=== PATIENT | male | born 1960 | race Caucasian/White ===

== ENCOUNTER 2024-02-22 13:28 | Inpatient (IN) | payer OTHER ==
--- OUTSIDE RECORDS SUMMARY | 2024-02-22 13:31 | XMS REPORT | Clinical Summary ---
Author Name Unknown Organization [facility] Address [address] [place] [address] Care Team Providers [employer] Name Role Phone Niya Mccarthy MD Unavailable [phone] Christiano Wilder MD Primary Care Provider [phone] Niya Mccarthy MD Unavailable [phone] Suni Kurtz MD Unavailable Finn Hawk MD Unavailable Renata Warren PA-C Unavailable [phone] Allergies Active Allergy Reactions Criticality Noted Date Comments Codeine Itching High 06/01/2015 Cefadroxil Itching High 06/01/2015 Cefdinir Itching High 06/01/2015 Medications * This document contains information received from the source organization and may not represent a complete record from that organization. BENICAR HCT 40-12.5 mg per tablet Take 1 tablet by mouth daily. 0 6 Active multivitamin (THERAGRAN) tab tablet Take 1 tablet by mouth daily. Active glucosamine-chondr oitin 500-400 mg tablet Take 2 tablets by mouth daily. Reported on 04/06/2016 Active vitamin E 600 units capsule Take 1 capsule (600 Units) by mouth daily. Active magnesium oxide 250 mg magnesium tablet Take 250 mg by mouth twice daily. Active cholecalciferol, vitamin D3, (VITAMIN D3 ORAL) Take 5,000 Units by mouth daily. Active VITAMIN K2 ORAL Take 1 tablet by mouth daily. Active ascorbic acid (VITAMIN C ORAL) Take 1 tablet by mouth daily. Active tadalafil (CIALIS) 20 mg tablet Take 1 tablet (20 mg) by mouth as needed. PRN 30 minutes prior to sexual activity. Max of one tablet in 36 hrs 2 Active ondansetron (ZOFRAN-ODT) 4 mg disintegrating tablet Dissolve 1 tablet (4 mg) on the tongue as needed. 2 Active sildenafil (VIAGRA) 100 MG tablet Take 1 tablet (100 mg) by mouth daily. 2 Active triamcinolone (KENALOG) ointment 0.1%Indications:Ec zema Apply topically to affected area(s) 2 (two) times a day as needed for rash (rash on body). 30 g 1 3 Active terbinafine HCl (LamISIL) 250 mg tabletIndications: Majocchi granuloma Take 1 tablet (250 mg) by mouth daily. 30 tablet 3 Active glimepiride (AMARYL) 2 mg tablet TAKE ONE (1) TABLET(S) BY MOUTH TWICE A DAY. 3 Active metFORMIN (GLUCOPHAGE) 500 mg tablet TAKE ONE (1) TABLET(S) BY MOUTH TWICE A DAY. 3 Active doxycycline (VIBRAMYCIN) 100 mg tabletIndications: Basal cell carcinoma of cheek Take 1 tablet (100 mg) by mouth twice daily. 20 tablet 3 Active Active Problems Problem Noted Date Diagnosed Date Pulmonary embolism 06/05/2021 Assessment & Plan (10/06/2021 8:43 AM CDT): Pulmonary embolism diagnosed 04/21/[address] scan for history of CHL intervention. Appears to have been provoked by Covid infection. Patient does also have a port in place, but the distribution of the blood clot on CT scan is not typical for a small port associated thrombus. Presence of GGO on CT scan suggest this was infection associated. He will complete 6 months of anticoagulation in early October. I have counseled him to continue his anticoagulation until this last refill is finished and then he can stop. Further follow-up in hematology clinic is not currently indicated though I remain available should any new issues arise. Assessment & Plan (06/07/2021 1:51 PM CDT): Pulmonary embolism diagnosed 04/21/[address] scan for history of CHL intervention. Appears to have been provoked by Covid infection. Patient does also have a port in place, but the distribution of the blood clot on CT scan is not typical for a small port associated thrombus. Presence of GGO on CT scan suggest this was infection associated. We will plan for 6 months of anticoagulation with plan to likely stop at that point. He knows to call or return for follow-up sooner if he develops bleeding problems in the interim. Return to clinic 4 months for consideration of discontinuation of anticoagulation. Pain in left shoulder 02/15/2017 Chronic back pain 04/06/2016 Neoplasm related pain (acute) (chronic) 08/26/19 16 Febrile neutropenia 08/24/2015 Rash 08/24/2015 Anemia in neoplastic disease 08/24/2015 Other Hodgkin lymphoma, lymph nodes of head, fac e, and neck 06/01/2015 Overview (12/17/2015): inactive Surgical History Surgery Date Site/Laterality Comments LYMPH NODE BIOPSY 05/06/2015 Left cervical lymph node SKIN BIOPSY N/A MOHS PROCEDURE left side of face and upper back WISDOM TOOTH EXTRACTION FL INSJ TUNNELED CTR VAD W/SUBQ PORT AGE 5 YR/> 09/15/2015 Chest/Right Procedure: INSERTION OF TUNNELED CENTRALLY INSERTED CENTRAL VENOUS CATHETER WITH SUBCUTANEOUS PORT; Surgeon: Santiago Miranda MD; Location: [facility]; Service: THRCV - VASCULAR SURGERY Medical devices from this surgery are in the Medical Devices section. FL US VASC ACCESS SITS VSL PATENCY NDL ENTRY 09/15/2015 Chest/Right Procedure: US GUIDANCE WITH EVAL OF POTENTIAL ACCESS SITES, REALTIME US VISUALIZATION OF VASC NEEDLE ENTRY; Surgeon: Santiago Miranda MD; Location: [facility]; Service: THRCV - VASCULAR SURGERY Medical devices from this surgery are in the Medical Devices section. FL FLUORO CENTRAL VENOUS ACCESS DEV PLACEMENT 09/15/2015 Chest/Right Procedure: FLUORO GUIDANCE FOR CENTRAL VENOUS ACCESS DEVICE PLACEMENT; Surgeon: Santiago Miranda MD; Location: [facility]; Service: THRCV - VASCULAR SURGERY Medical devices from this surgery are in the Medical Devices section. Medical History Medical History Date Comments Malignant lymphoma Hypertension Anemia in neoplastic disease 08/24/2015 Cancer of skin non-melanoma, le ft side of face and on upper back Family History Medical History Relation Name Comments Other Maternal Aunt accident Stroke Paternal Grandfather Asthma Sister 1 Relation Name Status Comments Father Alive Maternal Aunt (Age 18) Maternal Grandfather Maternal Grandmother (Age 95) Mother (Age 60s) Paternal Grandfather Paternal Grandmother Paternal Uncle 1 Alive Paternal Uncle 2 Alive Sister 1 Sister 2 Alive Social History Tobacco Use Types Packs/Day Years Used Date Smoking Tobacco: Never Smokeless Tobacco: Never Alcohol Use Standard Drinks/Week Comments No 0 (1 standard drink = 0.6 oz pur e alcohol) Sex and Gender Information Value Date Recorded Sex Assigned at Not on file Legal 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, 7th [place] [address] Heidi Atkinson, H[employer]ILL [employer]ER [address] [place] [phone] [email or web address] 03/24/2024 8:45 AM CROWNING INSPECTOR [facility] [address] [place] [phone] Heidi Atkinson, HOT MILL RO[employer]ER [address] [place] [phone] [email or web address] 03/24/2024 11:00 AM CROWNING INSPECTOR Follow-Up [facility] [address] [place] [address], 6th [place] [address] Christiano Wilder MD [address] [place] [phone] [email or web address] Health Maintenance Due Date Last Done Comments Pneumococcal Vaccine: Pediat rics (0 to 5 Years) and At-Risk Patients (6 to 64 Years) (1 of 2 - PCV) 08/10/1966 COVID-19 Vaccine (2 - Shruthi risk series) 06/23/2020 05/26/2020 Influenza Vaccine (#1) 2023 Medical Devices Implanted Type Area Product Lead Device Identifier Shelf Expiration Date Model / Serial / Lot Port Power Isp 6fr - [id number] Implanted:Qty : 1 on 09/15/2015 by Santiago Miranda MD at [facility] Implant Right: Chest Wall BARD [employer]ESS SYSTEM[employer] 05/15/2017 [id number] / / [id number] Insurance [facility] PPO [facility] PPO [facility] PPO Advance Directives * Full Code (Latest Code Status on File) Date Activated Date Inactivated Comments 08/24/2015 2:50 PM 08/26/2015 7:10 PM [employer] Executive Security Relationship Specialty Start Date End Date Niya Mccarthy MD [address] [place] [phone] [email or web address] PCP - External Referring 05/12/15 Christiano Wilder MD [address] [place] [phone] [email or web address] PCP - General Lymphoma and Myeloma 05/12/15 Niay Mccarthy MD [address] [place] [address] [email or web address] PCP - External Follow Up A 05/12/15 Suni Kurtz MD [address] [place] [phone] [email or web address] Physician Hematology 06/07/21 Finn Hawk MD [address] [place] [phone] [email or web address] Consulting Physician Dermatology 02/13/16 Renata Warren PA-C [address] [place] [phone] [email or web address] Physician Legal Executive Assistant Surgical Oncology 09/14/15
[2024-02-22] MEDS ORDERED: NITROGLYCERIN 0.4 MG/TAB SL ONE (13:48)
[2024-02-22] MEDS ORDERED: ASPIRIN 81 MG CHEWABLE TABLET ONE (13:48)
[2024-02-22] MEDS ORDERED: NA CHLORIDE 0.9% 500 ML ONE (13:48)
--- NOTE | 2024-02-22 14:25 | RAD REPORT ---
EXAM: Chest Single View HISTORY: CHEST PAIN COMPARISON: 08/24/2015 FINDINGS: LUNGS/PLEURA: Very mild nodular opacities present at the left lung base. No consolidation. No pulmona ry edema. MEDIASTINUM: The mediastinal silhouette is within normal limits. CARDIAC: The cardiac silhouette is within normal limits. UPPER ABDOMEN: No significant abnormality. BONES: No acute fracture. LINES/TUBES/OTHER: N/A IMPRESSION: Mild nodularity at the left lung base could reflect either acute or sequela of prior infection. The f indings are only mildly increased compared with 08/24/2015.
[2024-02-22 14:30] LABS: ALT/SGPT 24 U/L (16-61); AST/SGOT 15 U/L (15-37); Albumin 3.6 g/dL (3.4-5.0); Alkaline Phosphatase 60 U/L (45-117); Anion Gap 10.8 mEq/L (5.0-15.0); BUN Blood Urea Nitrogen 21 mg/dL (7-18); Bicarbonate 26 mEq/L (21-32); Bilirubin Total 0.6 mg/dL (0.2-1.0); Globulin 3.5 g/dL (2.3-3.5); Glomerular Filtration Rate 67 ml/min (=/>90); Glucose Level 128 mg/dL (74-106); Magnesium 2.2 mg/dL (1.6-2.4); NT PRO-BNP 377 pg/mL (<125); Potassium 3.8 mEq/L (3.5-5.1); Protein, Total 7.1 g/dL (6.4-8.2); Sodium Level 141 mEq/L (136-145); Troponin High Sensitivity 12.8 pg/mL (<58.9)
[2024-02-22 14:34] LABS: Bilirubin Direct < 0.2 mg/dL (0-0.2); Bilirubin Indirect, Calculated 0.4 mg/dL (0.2-0.8)
[2024-02-22 14:51] LABS: Absolute Basophils 0.1 K/uL (0-0.5); Absolute Eosinophils 0.1 K/uL (0-0.5); Absolute Lymphocytes (CBC) 3.5 K/uL (0.7-4.9); Absolute Monocytes 0.5 K/uL (0.1-1.3); Absolute Neutrophil 7.3 K/uL (1.8-8.0); Basophils % 0.9 % (0-1.3); Eosinophils % 0.7 % (0-4.4); Hematocrit 36.5 % (39.6-49.0); Hemoglobin 12.4 g/dL (13.6-17.9); Lymphocytes % 30.5 % (15.3-44.8); MCH 33.2 pg (27.0-35.0); MCHC 33.9 g/dL (32.0-36.0); MCV 97.9 fL (80-100); MPV 7.7 fL (7.6-11.3); Monocytes % 4.3 % (3.3-12.3); Neutrophils % 63.6 % (41.7-73.7); Platelets 229 thou/uL (152-406); RBC Red Blood Cell Count 3.73 M/uL (4.33-5.43); Red Cell Distribution Width 13.5 % (12.1-15.2)
[2024-02-22 15:01] LABS: PT Prothrombin Time 11.6 SECONDS (9.4-12.5); Protime INR 1.04
[2024-02-22 15:04] LABS: D-Dimer < 0.215 FEUug/mL (0-0.500)
--- NOTE | 2024-02-22 15:24 | ER ---
Nurse's Notes [facility] Name: Zach Mcfadden Age: 63 yrs Sex: Male : 1960 Arrival Date: 02/22/2024 Time: 13:28 Bed 6 Private MD: Diagnosis: Chest pain, unspecified Presentation: 02/21 13:37 Chief complaint: Patient states: left sided chest pain /10 with high blood pressure kc6 even after taking his meds this AM. pt reports SBP being in the 170's at home. pt states, "I'm just nervous. this is not normal for me.". Coronavirus screen: At this time, the client does not indicate any symptoms associated with coronavirus-19. Ebola Screen: No symptoms or risks identified at this time. Initial Sepsis Screen: Does the patient meet any 2 criteria? No. Patient's initial sepsis screen is negative. Does the patient have a suspected source of infection? No. Patient's initial sepsis screen is negative. Risk Assessment: Do you want to hurt yourself or someone else? Patient reports no desire to harm self or others. Onset of symptoms was February 22, 2024. 13:37 Method Of Arrival: Ambulatory kc6 13:37 Acuity: HUMBERTO 3 kc6 Historical: - Allergies: 13:39 Codeine; kc6 13:39 DURICEF; kc6 13:39 Omnicef; kc6 - PMHx: 13:39 Cancer; skin; Hodgkin's Lymphoma; Hypertension; Diabetes mellitus; kc6 - PSHx: 13:39 None; kc6 - Immunization history:: Adult Immunizations up to date. - Infectious Disease History:: Denies. - Social history:: Smoking status: Patient denies any tobacco usage or history of. Screenin:35 [facility] ED Fall Risk Assessment (Adult) History of falling in the last 3 months, rs5 including since admission No falls in past 3 months (0 pts) Confusion or Disorientation No (0 pts) Intoxicated or Sedated No (0 pts) Impaired Gait No (0 pts) Mobility Assist Device Used No (0 pt) Altered Elimination No (0 pt) Score/Fall Risk Level 0 - 2 = Low Risk Oriented to surroundings, Maintained a safe environment. Abuse screen: Denies threats or abuse. Nutritional screening: No deficits noted. Tuberculosis screening: No symptoms or risk factors identified. Assessment: 13:35 General: Appears in no apparent distress. uncomfortable, Behavior is calm, cooperative. rs5 Pain: Complains of pain in chest Pain does not radiate. Pain currently is 5 out of 10 on a pain scale. Quality of pain is described as aching, Pain began Is continuous. Neuro: Level of Consciousness is awake, alert, obeys commands, Oriented to person, place, time, situation. Cardiovascular: Patient's skin is warm and dry. 13:35 Respiratory: Airway is patent Respiratory effort is even, unlabored, Respiratory rs5 pattern is regular, symmetrical. GI: Abdomen is round non-distended, Abd is soft and non tender X 4 quads. : No signs and/or symptoms were reported regarding the genitourinary system. EENT: No signs and/or symptoms were reported regarding the EENT system. Derm: Skin is intact, Skin is pink, warm \\T\\ dry. 14:46 Reassessment: Patient and/or family updated on plan of care and expected duration. Pain rs5 level reassessed. Patient is alert, oriented x 3, equal unlabored respirations, skin warm/dry/pink. Patient denies pain at this time. Patient states feeling better. Patient states symptoms have improved. 15:43 Reassessment: Patient and/or family updated on plan of care and expected duration. Pain rs5 level reassessed. Patient is alert, oriented x 3, equal unlabored respirations, skin warm/dry/pink. 16:25 Reassessment: Patient and/or family updated on plan of care and expected duration. Pain rs5 level reassessed. Patient is alert, oriented x 3, equal unlabored respirations, skin warm/dry/pink. Vital Signs: 13:37 BP 216 / 101; Pulse 66; Resp 16 S; Pulse Ox 100% on R/A; Weight 79.38 kg (R); Height 5 kc6 ft. 6 in. (R); Pain 03/27; 13:40 BP 207 / 82; kc6 14:07 BP 183 / 84; Pulse 74; Resp 17; Pulse Ox 98% on R/A; rs5 14:34 BP 163 / 77; Pulse 56; aa5 15:44 BP 168 / 77; Pulse 61; Resp 17; Pulse Ox 99% on R/A; rs5 16:25 BP 158 / 74; Pulse 70; Resp 17; Pulse Ox 98% on R/A; rs5 13:37 Body Mass Index 28.25 (79.38 kg, 167.64 cm) kc6 13:37 Pain Scale: Adult kc6 ED Course: 13:32 Patient arrived in ED. mg5 13:32 Mariano Blue PA is PHCP. cp 13:32 Glenn Agrawal MD is Attending Physician. cp 13:35 No provider procedures requiring assistance completed. Inserted saline lock: 20 gauge rs5 in left antecubital area, using aseptic technique. Blood collected. Flushed with 10 mL NS. Patient maintains SpO2 saturation greater than 95% on room air. 13:39 Triage completed. kc6 13:39 Arm band placed on. kc6 13:39 Patient has correct armband on for positive identification. Bed in low position. Call kc6 light in reach. Side rails up X 1. monitoring specialist on. Pulse ox on. NIBP on. 13:44 Leoncio Bhatt, RN is Primary Nurse. rs5 14:18 XRAY Chest (1 view) In Process Unspecified. EDMS 15:23 Anup Agrawal MD is Hospitalizing Provider. cp 16:33 Patient admitted, IV remains in place. rs5 16:34 Provided Education on: discharge instructions . rs5 Administered Medications: 14:07 Drug: Aspirin PO Chewable Tablet 324 mg PO once; 81 mg tablets x 4 Route: PO; rs5 15:00 Follow up: Response: No adverse reaction rs5 14:07 Drug: Nitroglycerin Sublingual 0.4 mg Sublingual once Route: Sublingual; rs5 14:30 Follow up: Response: No adverse reaction; Pain is decreased rs5 14:07 Drug: NS 0.9% IV 500 ml IV at calculated rate once; to be given as a bolus over 30 rs5 minutes Route: IV; Rate: calculated rate; Site: left hand; 14:33 Follow up: Response: No adverse reaction; IV Status: Completed infusion; IV Intake: rs5 500ml 14:35 CANCELLED (Physician Discretion): [id number] mg IV at calculated rate once over 2 cp mins; For SBP greater than 140. Hold for HR less than 60, notify provider. Medication: 15:44 VIS not applicable for this client. rs5 Intake: 14:33 IV: 500ml; Total: 500ml. rs5 Outcome: 15:24 Decision to Hospitalize by Provider. cp 16:33 Admitted to Med/surg accompanied by tech, with chart, rs5 16:33 Condition: stable rs5 16:33 Instructed on the need for admit, Demonstrated understanding of instructions, 16:35 Patient left the ED. hb Signatures: Dispatcher [employer] EDMS Kavita Cortez RN RN aa5 Mariano Blue PA PA cp Becky Cespedes RN RN Nohemi Gurrola RN RN kc6 Leoncio Bhatt RN RN rs5 Angie Barnett mg5 Corrections: (The following items were deleted from the chart) 13:45 13:37 Chief complaint: Patient states: left sided chest pain 03/27 with high blood kc6 pressure even after taking his meds this AM. pt reports SBP being in the 170's at home. kc6
--- NOTE | 2024-02-22 15:24 | EDPHYS ---
Physician Documentation [facility] Name: Zach Mcfadden Age: 63 yrs Sex: Male : 1960 Arrival Date: 02/22/2024 Time: 13:28 Bed 6 Private MD: ED Physician Glenn Agrawal HPI: 02/21 13:45 This 63 yrs old Male presents to ER via Ambulatory with complaints of Chest Pain, High cp Blood Pressure. 13:45 The patient or guardian reports chest pain that is located primarily in the anterior cp chest wall, left. Onset: this morning. The pain does not radiate. 13:45 Associated signs and symptoms: Pertinent positives: elevated blood pressure, Pertinent cp negatives: abdominal pain, cough, diaphoresis, dizziness, near syncope, shortness of breath, syncope, vomiting. The chest pain is described as a pressure. Duration: The patient or guardian reports a single episode, that is still ongoing, but improving. Historical: - Allergies: 13:39 Codeine; kc6 13:39 DURICEF; kc6 13:39 Omnicef; kc6 - PMHx: 13:39 Cancer; skin; Hodgkin's Lymphoma; Hypertension; Diabetes mellitus; kc6 - PSHx: 13:39 None; kc6 - Immunization history:: Adult Immunizations up to date. - Infectious Disease History:: Denies. - Social history:: Smoking status: Patient denies any tobacco usage or history of. ROS: 13:50 Cardiovascular: Positive for chest pain, cp 13:50 Constitutional: Negative for body aches, chills, fever, poor PO intake, cp 13:50 Eyes: Negative for injury, pain, redness, and discharge, cp 13:50 ENT: Negative for drainage from ear(s), ear pain, sore throat, difficulty swallowing, difficulty handling secretions, 13:50 Respiratory: Negative for cough, shortness of breath, wheezing, 13:50 Abdomen/GI: Negative for abdominal pain, vomiting, diarrhea, constipation, 13:50 Back: Negative for pain at rest, pain with movement, 13:50 Neuro: Negative for altered mental status, dizziness, headache, numbness, syncope, near syncope, weakness, 13:50 All other systems are negative, Exam: 13:53 ECG was reviewed by the Attending Physician. cp 13:55 Constitutional: The patient appears in no acute distress, alert, awake, cp non-diaphoretic, non-toxic, well developed, well nourished, uncomfortable, 13:55 Head/Face: Normocephalic, atraumatic. cp 13:55 Eyes: Periorbital structures: appear normal, Conjunctiva: normal, no exudate, no injection, Sclera: no appreciated abnormality, Lids and lashes: appear normal, bilaterally, 13:55 ENT: External ear(s): are unremarkable, Nose: is normal, Mouth: Lips: moist, Oral mucosa: moist, Posterior pharynx: Airway: no evidence of obstruction, patent, 13:55 Chest/axilla: Inspection: normal, 13:55 Cardiovascular: Rate: normal, Rhythm: regular, Edema: is not appreciated, JVD: is not appreciated, 13:55 Respiratory: the patient does not display signs of respiratory distress, Respirations: normal, no use of accessory muscles, no retractions, labored breathing, is not present, Breath sounds: are clear throughout, no decreased breath sounds, no stridor, no wheezing, 13:55 Abdomen/GI: Inspection: abdomen appears normal, Palpation: abdomen is soft and non-tender, in all quadrants, 13:55 Back: pain, is absent, ROM is normal, 13:55 Neuro: Orientation: to person, place \T\ time. Mentation: is normal, Motor: moves all fours, strength is normal, Sensation: is normal, Vital Signs: 13:37 BP 216 / 101; Pulse 66; Resp 16 S; Pulse Ox 100% on R/A; Weight 79.38 kg (R); Height 5 kc6 ft. 6 in. (R); Pain 1/10; 13:40 BP 207 / 82; kc6 14:07 BP 183 / 84; Pulse 74; Resp 17; Pulse Ox 98% on R/A; rs5 14:34 BP 163 / 77; Pulse 56; aa5 15:44 BP 168 / 77; Pulse 61; Resp 17; Pulse Ox 99% on R/A; rs5 16:25 BP 158 / 74; Pulse 70; Resp 17; Pulse Ox 98% on R/A; rs5 13:37 Body Mass Index 28.25 (79.38 kg, 167.64 cm) [facility] 13:37 Pain Scale: Adult kc MDM: 15:24 Medical Screening Exam initiated 15:25 Data reviewed: vital signs, nurses notes, lab test result(s), EKG, radiologic studies, cp plain films, and as a result, I will admit patient. 15:25 Differential diagnosis: abnormal EKG, acute myocardial infarction, pleurisy, pneumonia, cp pneumothorax, pulmonary embolus, stable angina, unstable angina. The patient was given aspirin in the Emergency Department. I considered the following discharge prescriptions or medication management in the emergency department Medications were administered in the Emergency Department. See MAR. Independent interpretation of the following test(s) in the Emergency Department EKG: See my EKG interpretation above. Care significantly affected by the following chronic conditions: Diabetes, Hypertension. Counseling: I had a detailed discussion with the patient and/or guardian regarding the historical points, exam findings, and any diagnostic results supporting the discharge/admit diagnosis, lab results, radiology results. Response to treatment: the patient's symptoms have markedly improved after treatment, and as a result, I will admit patient. 15:30 ED course: consult with hospitalist Silvia Penaloza NP who will admit to services of DR Agrawal. 02/21 13:43 Order name: Basic Metabolic Panel; Complete Time: 14:35 02/21 14:35 Interpretation: Normal except: CL 108; GLUC 128; BUN 21; GFR 67. 02/21 13:43 Order name: CBC with Diff; Complete Time: 15:14 02/21 15:15 Interpretation: Normal except: WBC 11.50; RBC 3.73; HGB 12.4; HCT 36.5. 02/21 13:43 Order name: LFT's; Complete Time: 14:35 02/21 13:43 Order name: Magnesium; Complete Time: 14:35 02/21 13:43 Order name: NT PRO-BNP; Complete Time: 14:35 02/21 14:35 Interpretation: Reviewed. 02/21 13:43 Order name: Troponin HS; Complete Time: 14:35 02/21 14:36 Interpretation: Reviewed. 02/21 14:36 Order name: D-Dimer; Complete Time: 15:14 02/21 14:52 Order name: Protime (+INR); Complete Time: 15:14 EDME 02/21 13:43 Order name: XRAY Chest (1 view); Complete Time: 14:28 02/21 14:29 Interpretation: No acute disease except: Report review. 02/21 13:43 Order name: Cardiac monitoring; Complete Time: 13:45 02/21 13:43 Order name: EKG - Nurse/Tech; Complete Time: 13:45 02/21 13:43 Order name: IV Saline Lock; Complete Time: 14:07 02/21 13:43 Order name: Labs collected and sent; Complete Time: 14:07 02/21 13:43 Order name: O2 Per Protocol; Complete Time: 13:45 02/21 13:43 Order name: O2 Sat Monitoring; Complete Time: 13:45 02/21 14:18 Order name: Misc. Order: lab redraw; Complete Time: 15:43 sp EC:53 Rate is 63 beats/min. Rhythm is regular. FL interval is normal. QRS interval is normal. cp QT interval is normal. T waves are Inverted in leads III, aVR. Interpreted by me. Reviewed by me. Administered Medications: 14:07 Drug: Aspirin PO Chewable Tablet 324 mg PO once; 81 mg tablets x 4 Route: PO; rs5 15:00 Follow up: Response: No adverse reaction rs5 14:07 Drug: Nitroglycerin Sublingual 0.4 mg Sublingual once Route: Sublingual; rs5 14:30 Follow up: Response: No adverse reaction; Pain is decreased rs5 14:07 Drug: NS 0.9% IV 500 ml IV at calculated rate once; to be given as a bolus over 30 rs5 minutes Route: IV; Rate: calculated rate; Site: left hand; 14:33 Follow up: Response: No adverse reaction; IV Status: Completed infusion; IV Intake: rs5 500ml 14:35 CANCELLED (Physician Discretion): [id number] mg IV at calculated rate once over 2 cp mins; For SBP greater than 140. Hold for HR less than 60, notify provider. Disposition: 19:38 Co-signature as Attending Physician, Glenn Agrawal MD I reviewed the patient's care rn provided by the Advanced Practice Provider and agree with the diagnosis and treatment plan. Disposition Summary: 02/22/24 15:24 Hospitalization Ordered Notes: Hospitalization Status: Observation cp Provider: Anup Agrawal cp Location: Telemetry/MedSurg (observation) cp Condition: Stable cp Problem: new cp Symptoms: have improved cp Bed/Room Type: Standard cp Room Assignment: 230(02/22/24 15:56) aa5 Diagnosis - Chest pain, unspecified cp Forms: - Medication Reconciliation Form cp - SBAR form cp - Leadership Thank You Letter cp Signatures: Dispatcher [employer] EDMS Ariela Martinez Irene, RN RN iw Glenn Agrawal MD MD rn Calderon, Audri RN RN aa5 Mariano Blue PA PA cp Campbell, Kaitlyn, RN RN kc6 Leoncio Bhatt, VIKI RN rs5 Corrections: (The following items were deleted from the chart) 13:44 13:44 BASIC METABOLIC PANEL+C.LAB.BRZ ordered. EDMS EDMS 13:44 13:44 CBC+H.LAB.BRZ ordered. EDMS EDMS 13:44 13:44 HEPATIC FUNCTION+C.LAB.BRZ ordered. EDMS EDMS 13:44 13:44 MAGNESIUM+C.LAB.BRZ ordered. EDMS EDMS 13:44 13:44 PROBNP+C.LAB.BRZ ordered. EDMS EDMS 13:44 13:44 Troponin High Sensitivity+C.LAB.BRZ ordered. EDMS EDMS 13:44 13:44 Chest Single View+RAD.RAD.BRZ ordered. EDMS EDMS 14:35 14:30 Labetalol IV 10 mg IV at calculated rate once over 2 mins; For SBP greater than cp 140. Hold for HR less than 60, notify provider. ordered. cp 14:36 14:36 D-DIMER+COAG.LAB.BRZ ordered. EDMS EDMS 14:53 13:44 PROTIME (+INR)+COAG.LAB.BRZ ordered. EDMS EDMS 15:53 15:24 cp iw 15:56 15:53 217 iw aa5
--- NOTE | 2024-02-22 15:49 | P.HP ---
Certification for Inpatient Patient admitted to: Observation With expected LOS: <2 Midnights Patient will require the following post-hospital care: None Practitioner: I am a practitioner with admitting privileges, knowledge of patient current condition, hospital course, and medical plan of care. Services: Services provided to patient in accordance with Admission requirements found in Title 42 Section 412.3 of the Code of Federal Regulations Patient History Date of Service: 02/22/24 Reason for admission: Chest pain History of Present Illness: 63-year-old male with history of hypertension, zsx-tcxwjmi-nqwuwgigx diabetes, distant history of Hodgkin's lymphoma presents to the emergency department with chief complaint of chest pressure/tightness. He reports around a week ago he needed a Z-Charles for an upper respiratory tract infection, this morning after waking up and getting around began to have a tightness/pressure-like discomfort in his chest rated at a 1 out of 10 with no other associated signs or symptoms. His symptoms were not exacerbated by deep breaths, palpation and otherwise nonreducible. Denies ever having a cardiac evaluation including stress test or heart catheterization. Patient was evaluated in the emergency department his labs are significant for blood cell count of 11.5 hemoglobin 12.4 D-dimer negative glucose 128 BNP 377 chest x-ray was performed which revealed mild nodularity at the left lung base could reflect either acute or sequela of prior infection. The findings are only mildly increased when compared to 08/24/2015. EKG was negative for STEMI findings. Patient to be admitted under observation for ACS rule out. Allergies cefadroxil hydrate [From Duricef] Allergy (Verified 05/06/15 09:48) Itching cefdinir [From Omnicef] Allergy (Verified 05/06/15 09:48) Itching codeine Allergy (Verified 05/06/15 09:48) Itching Home Medications: Olmesartan/Hydrochlorothiazide [Benicar Hct 20-12.5 mg Tablet] 1 each PO DAILY 05/06/15 Chlorhexidine Gluconate [Hibiclens] 20 ml TP DAILY #500 ml 06/30/15 Minocycline HCl [Minocin] 100 mg PO BID #20 capsule 06/30/15 Mupirocin Oint [Bactroban 2% Ointment] 22 gm TP BID #1 tube 06/30/15 Sulfamethoxazole/Trimethoprim [Bactrim Ds Tablet] 1 each PO BID #20 tablet 06/30/15 tea tree oiL [Tea Tree Oil] 15 ml TP DAILY #300 ml 06/30/15 - Past Medical/Surgical History Diabetic: No -: Hypertension -: Hodgkin's lymphoma stage 2 -: Vbr-hdojyzl-vhorbtvpw diabetes -: Skin cancer -: Bone marrow biopsy -: Skin cancer removal Psychosocial/ Personal History: Lives at home with family - Family History Mother Notes: alzhemiers - Social History Smoking Status: Never smoker Alcohol use: No CD- Drugs: No Caffeine use: No Place of Residence: Home Review of Systems 10-point ROS is otherwise unremarkable Cardiovascular: Chest Pain Physical Examination - Physical Exam General: Alert, In no apparent distress, Oriented x3 HEENT: Atraumatic, PERRLA, Mucous membr. moist/pink, EOMI, Sclerae nonicteric Neck: Supple, 2+ carotid pulse no bruit, No LAD, Without JVD or thyroid abnormality Respiratory: Clear to auscultation bilaterally, Normal air movement Cardiovascular: Regular rate/rhythm, Normal S1 S2 Gastrointestinal: Normal bowel sounds, No tenderness Musculoskeletal: No tenderness Integumentary: No rashes Neurological: Normal speech, Normal strength at 5/5 x4 extr, Normal tone, Normal affect - Studies Laboratory Data (last 24 hrs) 02/22/24 02/22/24 02/22/24 14:44 14:44 14:04 WBC 11.50 H Hgb 12.4 L Hct 36.5 L Plt Count 229 PT 11.6 INR 1.04 Sodium 141 Potassium 3.8 BUN 21 H Creatinine 1.21 Glucose 128 H Magnesium 2.2 Total Bilirubin 0.6 AST 15 ALT 24 Alkaline Phosphatase 60 02/22/24 13:43 WBC Hgb Hct Plt Count PT Cancelled INR Cancelled Sodium Potassium BUN Creatinine Glucose Magnesium Total Bilirubin AST ALT Alkaline Phosphatase Assessment and Plan - Plan Assessment: Chest pain rule out ACS Diabetes mellitus type 0tbx-nfjkcgm-aljtpbxfc Hypertension Plan: Chest pain rule out ACS Denies previous cardiac workup including stress test or heart cath Initial high sensitive troponin negative Monitor on telemetry and trend troponins overnight Cardiology consulted Continue aspirin Diabetes mellitus type 1mcy-sfvirgk-mhuxgncdg ACHS Accu-Chek, sliding scale insulin Hypertension Continue nebivolol, hydrochlorothiazide DVT PPX: Lovenox Code status: Full Discharge Plan: Home Plan to discharge in: 24 Hours - Advance Directives Does patient have a Living Will: No Does patient have a Durable POA for Healthcare: No - Code Status/Comfort Care Code Status Assessed: Yes (Full code) Critical Care: No Time Spent Managing Pts Care (In Minutes): 56
[2024-02-22] MEDS ORDERED: ONDANSETRON 4 MG/2 ML VIAL IV PRN (16:08)
[2024-02-22] MEDS: INSULIN REGULAR (HUMAN) 100 UNIT/ML SQ SCH (16:30)
[2024-02-22 17:06] VITALS: O2SAT 99
[2024-02-22 17:08] VITALS: BMI 28.7
[2024-02-22] MEDS: MORPHINE 2 MG/ML SYR IV PRN (19:56)
[2024-02-22] MEDS: ACETAMINOPHEN 325 MG TABLET PO PRN (21:29)
[2024-02-22] MEDS: HYDRALAZINE HCL 20 MG/ML VIAL IV PRN (21:29)
[2024-02-22] MEDS: LABETALOL 20 MG/4ML SYRINGE IV ONE (23:57)
[2024-02-23 05:21] LABS: Absolute Basophils 0.2 K/uL (0-0.5); Basophils % 1.1 % (0-1.3); Eosinophils % 0.2 % (0-4.4); Hematocrit 36.9 % (39.6-49.0); Hemoglobin 12.4 g/dL (13.6-17.9); Lymphocytes % 30.6 % (15.3-44.8); MCHC 33.6 g/dL (32.0-36.0); MPV 7.7 fL (7.6-11.3); Neutrophils % 62.1 % (41.7-73.7); Platelets 220 thou/uL (152-406); RBC Red Blood Cell Count 3.77 M/uL (4.33-5.43)
[2024-02-23 05:44] LABS: Anion Gap 8.5 mEq/L (5.0-15.0); Potassium 3.5 mEq/L (3.5-5.1); Troponin High Sensitivity 18.4 pg/mL (<58.9)
[2024-02-23] MEDS: ASPIRIN EC 81 MG TAB PO SCH (08:36)
[2024-02-23] MEDS: POTASSIUM CL SA 10 MEQ TAB PO ONE (08:36)
[2024-02-23] MEDS: hydroCHLOROthiazide 12.5 MG CAP PO SCH (08:36)
[2024-02-23] MEDS: NEBIVOLOL HCL 5 MG TAB PO SCH (08:36)
[2024-02-23] MEDS: ENOXAPARIN 40 MG/0.4 ML SQ SCH (08:37)
--- NOTE | 2024-02-23 10:13 | P.PN ---
Date of Service: 02/23/24 Subjective: no acute events overnight Less pain today ROS: 10 point ROS as noted above, otherwise negative Physical exam GEN: Alert, oriented, NAD HEENT: Normal conjunctiva, sclera anicteric CV: Regular rate and rhythm, no edema Pulm: Nonlabored respirations on room air ABD: Soft, nontender, nondistended MSK: No joint tenderness Integumentary: No rashes Neuro: Normal speech, normal affect Vitals reviewed Assessment: Chest pain rule out ACS Leukocytosis Diabetes mellitus type 5dhd-eamnrue-bpoijktmq Hypertension Plan: Chest pain rule out ACS Denies previous cardiac workup including stress test or heart cath Tropes negative x 3 Monitor on telemetry Cardiology consulted Continue aspirin Leukocytosis No other reported symptoms aside from dull aching in chest Chest x-ray shows nodularity of the left lung consistent with recent infection Did recently complete a Z-Charles, steroids about 2 weeks ago Reports respiratory symptoms have resolved No abdominal pain, urinary symptoms, nausea vomiting or diarrhea No clear source of infection at this time Diabetes mellitus type 2sxz-oykkbto-ldhxymjks ACHS Accu-Chek, sliding scale insulin Hypertension Continue nebivolol, hydrochlorothiazide DVT PPX: Lovenox Code status: Full Discharge Plan: Home Plan to discharge in: 24 Hours Time Spent Managing Pts Care (In Minutes): 35
[2024-02-24] MEDS: MELATONIN 5 MG TABLET PO PRN (01:18)
[2024-02-24] MEDS: ALPRAZOLAM 0.5 MG TABLET PO ONE (01:18)
[2024-02-24 05:45] LABS: Absolute Basophils 0.2 K/uL (0-0.5); Absolute Lymphocytes (CBC) 3.5 K/uL (0.7-4.9); Absolute Monocytes 0.9 K/uL (0.1-1.3); Absolute Neutrophil 13.2 K/uL (1.8-8.0); Basophils % 0.9 % (0-1.3); Hematocrit 40.3 % (39.6-49.0); Hemoglobin 13.3 g/dL (13.6-17.9); Lymphocytes % 19.9 % (15.3-44.8); MCH 32.5 pg (27.0-35.0); MCV 98.4 fL (80-100); MPV 8.2 fL (7.6-11.3); Neutrophils % 74.2 % (41.7-73.7); Platelets 238 thou/uL (152-406); Red Cell Distribution Width 13.9 % (12.1-15.2)
[2024-02-24 06:08] LABS: Anion Gap 9.8 mEq/L (5.0-15.0); Potassium 3.8 mEq/L (3.5-5.1)
[2024-02-24] MEDS: POTASSIUM CL SA 10 MEQ TAB PO ONE (07:07)
--- NOTE | 2024-02-24 09:01 | RAD REPORT ---
EXAM:Thorax Wo Con CLINICAL INDICATION: Lymphoma. Abnormal chest x-ray. TECHNIQUE: CT chest performed.. Axial, sagittal and coronal reconstructions were obtained. One or mor e of the following dose reduction techniques were used: Automated exposure control, adjustment of the mA and/or kV according to the patient size, and/or iterative reconstruction. Unless otherwise specified, incidental findings do not require dedicated imaging follow-up. [id number]. COMPARISON: February 22, 2024 chest x-ray FINDINGS: Mild reticular opacities left lower lobe. Mild to moderate reticular nodular opacities left lower lob e. No mediastinal or hilar lymphadenopathy No pleural effusion. No pericardial effusion. Ascending thoracic aorta 3.9 cm IMPRESSION: Mild right lower lobe and mild to moderate left lower lobe opacities probably representing a combinat ion of either pneumonitis or atypical pneumonia superimposed over chronic changes.
[2024-02-24] MEDS: levoFLOXacin 750 MG TAB PO SCH (09:32)
--- NOTE | 2024-02-24 13:18 | P.PN ---
Date of Service: 02/24/24 Subjective: no acute events overnight Had some more chest pain overnight-dull/pressure ROS: 10 point ROS as noted above, otherwise negative Physical exam GEN: Alert, oriented, NAD HEENT: Normal conjunctiva, sclera anicteric CV: Regular rate and rhythm, no edema Pulm: Nonlabored respirations on room air ABD: Soft, nontender, nondistended MSK: No joint tenderness Integumentary: No rashes Neuro: Normal speech, normal affect Vitals reviewed Assessment: Chest pain rule out ACS Leukocytosis Diabetes mellitus type 4pki-eohuwlq-qsdhooqou Hypertension Plan: Chest pain rule out ACS Denies previous cardiac workup including stress test or heart cath Tropes negative x 3 Monitor on telemetry Cardiology consulted-rec inpatient stress which has been ordered NPO midnight for stress Continue aspirin Leukocytosis No other reported symptoms aside from dull aching in chest Chest x-ray shows nodularity of the left lung consistent with recent infection Did recently complete a Z-Charles, steroids about 2 weeks ago Reports respiratory symptoms have resolved No abdominal pain, urinary symptoms, nausea vomiting or diarrhea No clear source of infection at this time WBC increased to [address] chest without performed 02/23 which showed the following Mild right lower lobe and mild to moderate left lower lobe opacities probably representing a combination of either pneumonitis or atypical pneumonia superimposed over chronic changes. Started levofloxacin 02/23 Diabetes mellitus type 4xof-fqkijue-wkfmpjbft ACHS Accu-Chek, sliding scale insulin Hypertension Continue nebivolol, hydrochlorothiazide DVT PPX: Lovenox Code status: Full Discharge Plan: Home Plan to discharge in: 24 Hours Time Spent Managing Pts Care (In Minutes): 35
--- NOTE | 2024-02-24 16:49 | P.CNS ---
Date of Consult: 02/24/24 Chief Complaint: Chest pain History of Present Illness: Patient with PMH of HTN, DM, presented with left sided chest pain, occasional, no radiation, report that he was getting treated for PNA, denies any other cardiac symptoms. Allergies cefadroxil hydrate [From Duricef] Allergy (Verified 05/06/15 09:48) Itching cefdinir [From Omnicef] Allergy (Verified 05/06/15 09:48) Itching codeine Allergy (Verified 05/06/15 09:48) Itching Home medications list reviewed: Yes Home Medications: Glimepiride 2 mg PO DAILYPRN PRN 02/22/24 Metformin ER [Glucophage ER] 500 mg PO DAILYPRN PRN 02/22/24 Nebivolol HCl [Bystolic] 10 mg PO DAILY 02/22/24 hydroCHLOROthiazide [Hydrochlorothiazide*] 12.5 mg PO DAILY 02/22/24 - Past Medical/Surgical History Diabetic: No -: Hypertension -: Hodgkin's lymphoma stage 2 -: Daj-ubhgzrm-ttgypahmq diabetes -: Skin cancer -: Bone marrow biopsy -: Skin cancer removal Psychosocial/ Personal History: Lives at home with family - Family History Mother Notes: alzhemiers - Social History Smoking Status: Never smoker Alcohol use: No CD- Drugs: No Caffeine use: No Place of Residence: Home Review of Systems 10-point ROS is otherwise unremarkable Physical Examination Temp Pulse Resp BP Pulse Ox 97.9 F 64 20 130/68 97 02/24/24 16:00 02/24/24 16:00 02/24/24 16:00 02/24/24 16:00 02/24/24 16:00 General: Alert, In no apparent distress HEENT: Atraumatic, PERRLA, Mucous membr. moist/pink, EOMI, Sclerae nonicteric Neck: Supple, 2+ carotid pulse no bruit, No LAD, Without JVD or thyroid abnormality Respiratory: Clear to auscultation bilaterally, Normal air movement Cardiovascular: Regular rate/rhythm, Normal S1 S2 Gastrointestinal: Normal bowel sounds, No tenderness Musculoskeletal: No tenderness Integumentary: No rashes Neurological: Normal gait, Normal speech, Normal tone, Normal affect Lymphatics: No axilla or inguinal lymphadenopathy - Problems (1) Chest pain Current Visit: Yes Status: Acute Plan: with risk factors including HTN, DM NPO for stress test in am (2) HTN (hypertension) Current Visit: Yes Status: Acute Plan: continue current medications and monitor
[2024-02-25 04:58] LABS: Absolute Basophils 0.1 K/uL (0-0.5); Absolute Eosinophils 0.1 K/uL (0-0.5); Absolute Lymphocytes (CBC) 4.4 K/uL (0.7-4.9); Absolute Monocytes 0.7 K/uL (0.1-1.3); Absolute Neutrophil 5.4 K/uL (1.8-8.0); Basophils % 0.9 % (0-1.3); Eosinophils % 1.3 % (0-4.4); Hemoglobin 14.2 g/dL (13.6-17.9); Lymphocytes % 41.4 % (15.3-44.8); MCH 33.4 pg (27.0-35.0); MCHC 33.9 g/dL (32.0-36.0); MCV 98.6 fL (80-100); MPV 8.4 fL (7.6-11.3); Monocytes % 6.5 % (3.3-12.3); Neutrophils % 49.9 % (41.7-73.7); Platelets 218 thou/uL (152-406); RBC Red Blood Cell Count 4.26 M/uL (4.33-5.43); Red Cell Distribution Width 14.3 % (12.1-15.2)
[2024-02-25 05:24] LABS: Anion Gap 10.6 mEq/L (5.0-15.0); Potassium 3.6 mEq/L (3.5-5.1)
[2024-02-25 08:56] VITALS: BP 121/64; TEMP 97.5
[2024-02-25] MEDS ORDERED: REGADENOSON 0.4 MG/5 ML SYR IV ONE (10:05)
[2024-02-25] MEDS: POTASSIUM CL SA 10 MEQ TAB PO ONE (11:36)
--- NOTE | 2024-02-25 11:52 | RAD REPORT ---
EXAM: Nuclear medicine cardiac perfusion examination with ejection fraction HISTORY: Chest pain TECHNIQUE: Rest images: 10.9 mCi technetium 99m sestamibi Stress images: 30.1 mCi of technetium 99m sestamibi; Lexiscan COMPARISON: None FINDINGS: Tomographic images: No reversible perfusion defects. Fixed defect along the inferior wall, could be a rtifactual or related to a remote infarct. Gated images: Some hypokinesia of the inferior wall especially near the junction with the septum. Nor mal ejection fraction of 66%. EDV: 41 mL ESV: 14 mL TID: 0.79 IMPRESSION: No scintigraphic evidence of myocardial ischemia. Fixed defect throughout the inferior wall, could be artifactual or related to a remote infarct. Hypok inesia noted along the parasagittal aspect of the inferior wall. Left ventricular ejection fraction:66%. Reduced end-systolic volume, correlate with history of long-s tanding hypertension.
--- NOTE | 2024-02-25 11:53 | TREADPHA ---
DX: CHEST PAIN Date of Study: 02/25/2024 Ht: 5' 6 " Wt: 178 lb 0 oz Consulting Physician: Estuardo NEWMAN MEDICATIONS: ASPIRIN, LOVENOX, APRESOLINE, HYDROCHLOROTHIAZIDE, NOVOLIN-R, LEVAQUIN, BYSTOLIC HISTORY: 63 YEAR OLD MALE WITH COMPLIANTS OF CHEST PAIN. HISTORY OF HYPERTENSION, BORDERLINE DIABETIC, HODGKINS LYMPHOMA. PHYSICIAL EXAMINATION: RESTING B.P.: 155/87 RESTING H.R.: 78 RESTING EKG: NORMAL SINUS RHYTHM 81 BEATS PER MINUTE. PROTOCOL: LEXISCAN EXERCISE TIME: 3:30 B.P. AT PEAK STRESS: 151/73 IMPRESSION: LEXICAN INJECTED PER PROTOCOL. CARDIOLITE INJECTED. SEE NUCLEAR MEDICINE REPORT. NO CHEST PAIN. NO VENTRICULAR TACHYCARDIA OR SUPRAVENTRICULAR TACHYCARDIA. NO ARRYTHMIAS NOTED. CAFFEINE PROVIDED.
--- NOTE | 2024-02-25 12:15 | P.PN ---
Subjective Date of Service: 02/25/24 Chief Complaint: Chest pain Subjective: No new changes, No C/O voiced, Tolerating diet, Ambulating, Improving Review of Systems 10-point ROS is otherwise unremarkable Physical Examination - Vital Signs Temperature: 97.5 F Blood Pressure: 121/64 Pulse: 69 Respirations: 18 Pulse Ox (%): 95 - Physical Exam General: Alert, In no apparent distress HEENT: Atraumatic, PERRLA, EOMI Neck: Supple, JVD not distended Respiratory: Clear to auscultation bilaterally, Normal air movement Cardiovascular: Regular rate/rhythm, Normal S1 S2 Gastrointestinal: Normal bowel sounds, No tenderness Musculoskeletal: No tenderness Integumentary: No rashes Neurological: Normal speech, Normal tone, Normal affect Lymphatics: No axilla or inguinal lymphadenopathy - Studies Medications List Reviewed: Yes Assessment And Plan - Current Problems (Diagnosis) (1) Chest pain Current Visit: Yes Status: Acute Plan: with risk factors including HTN, DM Stress test is negative. No further cardiac work up needed. outpatient follow up with cardiology. (2) HTN (hypertension) Current Visit: Yes Status: Acute Plan: continue current medications and monitor
--- NOTE | 2024-02-25 13:30 | P.DS ---
Admission Date: 02/23/24 Discharge Date: 02/25/24 Disposition: ROUTINE DISCHARGE Discharge Condition: GOOD Reason for Admission: Chest pain Brief History of Present Illness: Diagnosis Chest pain rule out ACS Leukocytosis Diabetes mellitus type [id number] Hypertension HPI 02/22/2024 Zach Mcfadden is a 63-year-old male with history of hypertension, geq-ryjetvj-kecwefvvl diabetes, distant history of Hodgkin's lymphoma presents to the emergency department with chief complaint of chest pressure/tightness. He reports around a week ago he needed a Z-Charles for an upper respiratory tract infection, this morning after waking up and getting around began to have a tightness/pressure-like discomfort in his chest rated at a 1 out of 10 with no other associated signs or symptoms. His symptoms were not exacerbated by deep breaths, palpation and otherwise nonreducible. Denies ever having a cardiac evaluation including stress test or heart catheterization. Patient was evaluated in the emergency department his labs are significant for blood cell count of 11.5 hemoglobin 12.4 D-dimer negative glucose 128 BNP 377 chest x-ray was performed which revealed mild nodularity at the left lung base could reflect either acute or sequela of prior infection. The findings are only mildly increased when compared to 08/24/2015. EKG was negative for STEMI findings. Patient to be admitted under observation for ACS rule out. Hospital Course: Zach Mcfadden is a pleasant 63-year-old male with a past medical history significant for hypertension, jta-ybmqbpc-[id number] diabetes, distant history of Hodgkin's lymphoma who was admitted to the [facility] on 02/22/2024 for NSTEMI. Zach presented to the ED with chief complaint of chest pressure and tightn ess. He reported taking a Z-Charles for upper respiratory infection 1 week prior to arrival. He reports increase worsening of chest tightness and pressure that is not exacerbated by deep breaths or associated with palpitations. CT chest showing "mild right lower lobe and mild to moderate left lower lobe opacity probably representing combination of either pneumonitis or atypical pneumonia superimposed over chronic changes". Dr. Grimm was consulted, troponins remained negative, EKG without ST changes. Stress test performed and resulted negative for ischemic findings on 02/25/2024. He had leukocytosis, but denies respiratory symptoms. He will be discharged with Levaquin and follow-up with PCP for continued monitoring. On 02/25/2024, Zach was seen on morning rounds and deemed medically stable for discharge home with family support. Zach was discharged with instructions to schedule follow-up appointments with Dr. Grimm and PCP. Zach was provided prescriptions for Levaquin. Physical exam GEN: Alert and oriented x3, NAD HEENT: Normal conjunctiva, sclera anicteric CV: NSR, S1-S2 present, no murmur noted Pulm: Nonlabored respirations, on room air, clear BBS ABD: Soft on palpation, nontender, nondistended, normal active bowel sounds MSK: No joint tenderness Integumentary: No rashes Neuro: Normal speech, normal affect Vital Signs/Physical Exam: Temp Pulse Resp BP Pulse Ox 97.5 F 69 18 121/64 95 02/25/24 12:15 02/25/24 12:15 02/25/24 12:15 02/25/24 12:15 02/25/24 12:15 Laboratory Data at Discharge: WBC 10.70 thou/uL (4.3-10.9) 02/25/24 04:16 Hgb 14.2 g/dL (13.6-17.9) 02/25/24 04:16 Hct 42.0 % (39.6-49.0) 02/25/24 04:16 Plt Count 218 thou/uL (152-406) 02/25/24 04:16 PT 11.6 SECONDS (9.4-12.5) 02/22/24 14:44 INR 1.04 02/22/24 14:44 Sodium 137 mEq/L (136-145) 02/25/24 04:16 Potassium 3.6 mEq/L (3.5-5.1) 02/25/24 04:16 BUN 21 mg/dL (7-18) H 02/25/24 04:16 Creatinine 1.04 mg/dL (0.70-1.30) 02/25/24 04:16 Glucose 112 mg/dL (74-106) H 02/25/24 04:16 Magnesium 2.2 mg/dL (1.6-2.4) 02/22/24 14:04 Total Bilirubin 0.6 mg/dL (0.2-1.0) 02/22/24 14:04 AST 15 U/L (15-37) 02/22/24 14:04 ALT 24 U/L (16-61) 02/22/24 14:04 Alkaline Phosphatase 60 U/L (45-117) 02/22/24 14:04 Triglycerides 132 mg/dL (<150) 02/23/24 05:09 Cholesterol 179 mg/dL (<200) 02/23/24 05:09 HDL Cholesterol 44 mg/dL (40-60) 02/23/24 05:09 Cholesterol/HDL Ratio 4.07 02/23/24 05:09 Home Medications: Glimepiride 2 mg PO DAILYPRN PRN 02/22/24 Metformin ER [Glucophage ER*] 500 mg PO DAILYPRN PRN 02/22/24 Nebivolol HCl [Bystolic] 10 mg PO DAILY 02/22/24 hydroCHLOROthiazide [Hydrochlorothiazide*] 12.5 mg PO DAILY 02/22/24 Nebivolol HCl [Bystolic*] 10 mg PO DAILY tab 02/25/24 levoFLOXacin [Levaquin*] 750 mg PO DAILY 10 Days #10 tab 02/25/24 New Medications: levoFLOXacin [Levaquin*] 750 mg PO DAILY 10 Days #10 tab Physician Discharge Instructions: 1. Please call and schedule a follow-up appointment with your PCP in 1 week - Please follow-up with your PCP for medication refills/adjustments 2. Please call and schedule a follow-up appointment with Dr. Grimm in 2 weeks 3. Continue diabetic diet diet 4. No activity restrictions 5. Return to the ED if symptoms worsen New medications Levaquin 750 mg daily x 10 days, follow-up with PCP Diet: Regular Activity: Ad latha Followup: Darwin Monroy DO, DO [Primary Care Provider] - 1-2 Weeks Noé Grimm MD [ACTIVE - CAN ADMIT] - 1-2 Weeks
--- NOTE | 2024-02-28 16:12 | EKG ---
Test Date: 2024-02-22 Test Time: 13:47:04 [employer]: [place] MEASUREMENT RESULTS: Intervals: Rate: 63 HI: 148 QRSD: 84 QT: 406 QTc: 415 [place]: P: 54 HI: 148 QRS: 9 T: 24 INTERPRETIVE STATEMENTS: Normal sinus rhythm Minimal voltage criteria for LVH, may be normal variant Borderline ECG Compared to ECG 08/24/2015 00:24:22 Left ventricular hypertrophy now present Electronically Signed On 02-28-24 16:06:05 DENTAL TECHNICIAN [employer] by Noé Grimm
== END 2024-02-25 14:22 | disposition home or self-care (01) | DRG 282 ==
LOC: ER 13:28 → ERHOLD 15:42 → 2ND 16:30 → OBSVTOIN 02-23 17:19
PROVIDERS: ADMIT Hospitalist; ATTEND Internal Medicine
DX: I21.4 Non-ST elevation (NSTEMI) myocardial infarction (principal); I10 Essential (primary) hypertension; E11.9 Type 2 diabetes mellitus without complications; D72.829 Elevated white blood cell count, unspecified; Z88.5 Allergy status to narcotic agent; Z88.8 Allergy status to other drugs, medicaments and biological substances; Z85.72 Personal history of non-Hodgkin lymphomas; Z79.84 Long term (current) use of oral hypoglycemic drugs; Z79.899 Other long term (current) drug therapy; Z85.828 Personal history of other malignant neoplasm of skin
CPT/HCPCS: 36415; 71045; 71250; 78452; 80048; 80061; 80076; 82947; 83735; 83880; 84484; 85025; 85379; 85610; 93005; 93017; 99285; A9500; G0378; J0360; J1650; J2270; J2785; J7040